=== PATIENT | female | born 1975 | race Caucasian/White ===

== ENCOUNTER 2020-10-28 21:11 | Emergency (ER) | payer OTHER ==
[2020-10-28 22:09] LABS: HEMOGLOBIN 14.1 gm/dl (12.3-15.3); RED BLOOD COUNT 4.65 M/UL (4.00-5.10); WHITE BLOOD COUNT 7.2 K/UL (4.5-11.0)
[2020-10-28 22:28] LABS: BUN/CREATININE RATIO 19 (0-10)
[2020-10-29] MEDS ORDERED: ZOFRAN ODT 4 MG4 MG PO (03:09)
[2020-10-29] MEDS ORDERED: BENTYL 20MG TAB20 MG PO (03:09)
[2020-10-29] MEDS ORDERED: OMNICEF 300 MG300 MG PO (03:10)
== END 2020-10-29 03:16 | disposition home or self-care (01) ==
LOC: ER1 21:11
PROVIDERS: Nurse Practitioner; Physician Assistant
DX: N39.0 Urinary tract infection, site not specified (principal); K62.5 Hemorrhage of anus and rectum; Z20.822 Contact with and (suspected) exposure to COVID-19
CPT/HCPCS: 0240U; 76830; 80053; 80307; 81001; 83605; 84703; 85025; 85610; 96374; 99284; J0696; Q9967